=== PATIENT | male | born 1935 | race Caucasian/White ===

== ENCOUNTER → 2016-04-23 | Outpatient (CLI) | payer OTHER, BC ==
[~2016-04-23] MED LIST: ASPI81TA28 PO; ATOR-22 PO; BRIM0.2S OPB; CALCTAB7 PO; CLC100 PO; GABA-112 PO; METO25TA3 PO; PLV75 PO; PRAM0.129 PO
[2016-04-23 10:34] LABS: ALT/SGPT 29 U/L (12-78); BLOOD UREA NITROGEN 12 mg/dl (7-18); BUN/CREATININE RATIO 14.7 (10-20); CALCIUM 9.5 mg/dl (8.5-10.1); CARBON DIOXIDE 27 mmol/L (21-32); CHLORIDE 104 mmol/L (98-107); CHOLESTEROL 105 mg/dl (0-200); CREATININE 0.79 mg/dl (0.60-1.40); GLUCOSE 94 mg/dl (70-99); POTASSIUM 4.6 mmol/L (3.5-5.1); SODIUM 140 mmol/L (136-145); TRIGLYCERIDES 82 mg/dl (0-150); VERY LOW DENSITY LIPOPROT CALC 16 mg/dl
[2016-04-23 10:37] LABS: ALB/GLOB RATIO 1.3 (0.9-2); ALKALINE PHOSPHATASE 90 U/L (45-117); AST/SGOT 28 U/L (15-37); CHOLESTEROL/HDL RATIO 2.7; HDL CHOLESTEROL 39 mg/dl; LDL CHOLESTEROL CALCULATED 50 mg/dl
== END | disposition home or self-care (01) ==
LOC: C.LABFOXMH 10:10
PROVIDERS: ATTEND Internal Medicine
DX: E78.00 Pure hypercholesterolemia, unspecified (principal)

== ENCOUNTER → 2017-01-17 | Outpatient (CLI) | payer OTHER, BC ==
[~2017-01-17] MED LIST changes: -ATOR-22 PO
[2017-01-17 09:07] LABS: BLOOD UREA NITROGEN 15 mg/dl (7-18); BUN/CREATININE RATIO 15.8 (10-20); CALCIUM 9.2 mg/dl (8.5-10.1); CARBON DIOXIDE 29 mmol/L (21-32); CHLORIDE 104 mmol/L (98-107); CREATININE 0.92 mg/dl (0.60-1.40); GLUCOSE 92 mg/dl (70-99); POTASSIUM 4.3 mmol/L (3.5-5.1); SODIUM 137 mmol/L (136-145)
== END | disposition home or self-care (01) ==
LOC: C.LABFOXMH 08:47
PROVIDERS: ATTEND Internal Medicine
DX: E78.5 Hyperlipidemia, unspecified (principal)

== ENCOUNTER 2023-02-22 17:38 | Inpatient (IN) ==
--- NOTE | 2023-02-22 18:11 | Emergency Department Note ---
Impression & Plan Acetabulum fracture, right, Ambulatory dysfunction ED Provider Note HISTORY OF PRESENT ILLNESS: Patient is an 87-year-old male presenting with right hip pain. Patient fell yesterday while trying to ambulate with his walker. He reports that he lost his footing and fell, landing on his right hip and striking his head. Patient was evaluated in the emergency department yesterday and had CT scans of his head and neck performed which were negative. X-rays of the pelvis and right femur were negative. He was discharged back to his facility. Patient states he had continued right hip pain while at his facility and has been unable to ambulate today secondary to the right hip pain. His provider at [facility] ordered a CT of the pelvis which showed an acetabular fracture and he was referred back to the ER. Patient reports that he is normally ambulatory with a cane or a walker, but has been unable to ambulate today secondary to pain in the right hip. Denies any chest pain or shortness of breath. Patient is on Plavix daily. ROS: as above PHYSICAL EXAM: Constitutional: Patient appears in no acute distress. HENT: Head: Normocephalic and atraumatic. Eyes: EOMI, PERRL Mouth/Throat: Mucous membranes moist. Neck: Trachea midline. Neck supple. Cardiovascular: RRR, No murmurs, rubs or gallops. Intact distal pulses. Pulmonary/Chest: No respiratory distress. Breath sounds clear and equal bilaterally. No wheezes or rales. Abdominal: Abdomen soft, no tenderness, rebound or guarding. Musculoskeletal: Tenderness to palpation of the right pelvis. Patient is unable to straight leg raise on the right secondary to pain in the hip Skin: Warm and dry. Large area of ecchymosis to the right posterior upper arm Psychiatric: Appropriate mood and affect for situation. Neurological: Alert and keenly responsive. CN II-XII grossly intact, moving all extremities equally and fully. MDM: - Vitals signs stable. - History obtained via patient. Patient presents with right hip pain. Patient had a fall yesterday and was cleared in the emergency department. However, since being back at his correction he has had continued right hip pain. His correction sent him for further imaging and his CT scan was shown to have an acetabular fracture on the right side. Patient's been nonambulatory today at his correction secondary to significant pain in his right hip. Denies any numbness or tingling down the leg. He is on Plavix. - Chronic conditions affecting care: CVA; HTN; HLD - Differential diagnoses include, but are not limited to: Acetabular fracture; anemia; electrolyte abnormality - Order placed for continuous cardiac monitoring. At this time, monitor showed rate of 63 bpm with normal sinus rhythm, per my interpretation. - External medical records reviewed. ER documentation from the yesterday was reviewed. CT head and cervical spine without contrast were negative for acute pathology - Laboratory workup interpreted by myself showed normal WBC; stable electrolytes - CT hip without contrast from earlier today was reviewed. It showed a nondisplaced comminuted acetabular fracture on the right. - Discussed case with orthopedist electronic components assembler, Dr. Torres, at 18:15. He reports this can be treated nonoperatively and recommended pain control. Recommended weightbearing as tolerated once pain is controlled. No surgical interventions at this time. - Patient given 25 mcg IV fentanyl in ER. On reassessment, he is still complaining of pain. Given patient's continued pain and inability to get up to ambulate like he normally would, will admit for pain control. - Discussion was had with social service manager about patient's case and need for admission for pain management - Hospitalist consulted for admission - Patient admitted to [facility] for further evaluation and management. 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 Stroke 2018 - no deficits - on plavix Hypertension Hyperlipidemia Surgical History History of right cataract surgery History of appendectomy History of hernia repair umbilical x 1, BL inguinal History of tonsillectomy Family History Other No family history of adverse response to anesthesia Social History Smoking Status: Never smoker Second Hand Exposure: No; Do You Dip or Chew Tobacco: No; Hx Alcohol Use: No Hx Substance Use: No Preferred Language: Icelandic Communication Ability: Effective Political Organizer Required: No Beliefs That Will Affect Care: None Current Living Situation: Spouse Feels Safe at Home: Yes Assistive Devices: Cane, Glasses and Walker Allergies Allergies Allergy/AdvReac Type Severity Reaction Status Date / Time No Known Allergies Allergy Verified 02/21/23 20:26 Home Meds Home Medications Medication Instructions Recorded Confirmed atorvastatin 20 mg tablet (Lipitor) 20 mg PO QAM 10/20/19 02/22/23 brimonidine 0.2 %-timolol 0.5 % 1 drp OPB BID 10/20/19 02/22/23 eye drops (Combigan) clopidogrel 75 mg tablet (Plavix) 75 mg PO QAM 10/20/19 02/22/23 metoprolol succinate 25 mg 25 mg PO QAM 10/20/19 02/22/23 tablet,extended release 24 hr (Toprol XL) pramipexole 0.25 mg tablet 0.25 mg PO TID 02/21/23 02/22/23 triamcinolone acetonide 0.1 % 1 applic topical DAILY PRN itchy 02/21/23 02/22/23 topical cream feet Saccharomyces boulardii 250 mg 250 mg PO DAILY 02/22/23 02/22/23 capsule (Florastor) acetaminophen 325 mg tablet 650 mg PO QID 02/22/23 02/22/23 (Tylenol) gabapentin 300 mg capsule 300 mg PO QID 02/22/23 02/22/23 Previous Rx's Medication Instructions Recorded cephalexin 500 mg capsule 500 mg PO BID 10 days #20 caps 02/21/23 Results & Data (ED) Vital Signs Vital Signs - 24 hr 02/22/23 17:45 02/22/23 19:29 Temperature 36.6 C Temperature Source Oral Pulse Rate 67 Pulse Rate [Finger] 63 Pulse Rhythm [Finger] Regular Pulse Strength [Finger] Normal Respiratory Rate 20 17 Respiratory Effort / Characteristics Non-Labored Spontaneous Non-Labored Spontaneous Respiratory Depth Normal Normal Respiratory Pattern Regular Regular Blood Pressure 144/81 H Blood Pressure [Right Arm] 118/87 Blood Pressure Mean 102 Blood Pressure Mean [Right Arm] 97 Blood Pressure Position Semi-fowlers Blood Pressure Position [Right Arm] Semi-fowlers Pulse Oximetry 95 98 Oxygen Delivery Method Room Air Room Air Sepsis Recent Fever Within 48 Hours No Sepsis New/Unexplained Change in Mental Status N/A Sepsis Action Taken by Nursing No Action Required Laboratory Data 02/22/23 17:50 02/22/23 17:50 Lab Results 02/22/23 Range/Units 17:50 WBC 8.84 (4.8-10.8) K/ul RBC 3.96 L (4.70-6.10) M/uL Hgb 13.2 L (14.0-18.0) g/dl Hct 39.3 L (42.0-52.0) % MCV 99.2 (80.0-100.0) fL MCH 33.3 (25.0-34.0) pg MCHC 33.6 (32.0-36.0) g/dL RDW Std Deviation 44.2 (36.4-46.3) fL RDW Coeff of Daniel 11.9 (11.5-14.5) % Plt Count 147 (130-400) K/uL MPV 10.7 (9.4-12.4) fL Immature Gran % (Auto) 0.5 % Neut % (Auto) 69.8 % Lymph % (Auto) 16.2 % Rankin % (Auto) 6.8 % Eos % (Auto) 6.2 % Baso % (Auto) 0.5 % Neut # (Auto) 6.18 (1.40-6.50) K/uL Lymph # (Auto) 1.43 (1.20-3.40) K/uL Rankin # (Auto) 0.60 H (0.11-0.59) K/uL Eos # (Auto) 0.55 H (0.00-0.50) K/uL Baso # (Auto) 0.04 (0.00-0.20) K/uL Immature Gran # (Auto) 0.04 (0.01-0.20) K/uL Sodium 132 L (136-145) mmol/L Potassium 4.3 (3.5-5.1) mmol/L Chloride 101 (98-107) mmol/L Carbon Dioxide 25 (21-32) mmol/L Anion Gap 6 (3-11) BUN 30 H (6-23) mg/dl Creatinine 0.96 (0.6-1.4) mg/dl Est Cr Clr Drug Dosing 61.1 ml/min Est GFR ( Amer) 80.9 ml/min Est GFR (Non-Af Amer) 69.8 ml/min BUN/Creatinine Ratio 31.3 H (10-20) Glucose 107 H (70-99(Fasting)) mg/dl Calcium 9.3 (8.6-10.3) mg/dl Total Bilirubin 1.0 (0.2-1.0) mg/dl AST 20 (13-39) U/L ALT 15 (7-52) U/L Alkaline Phosphatase 70 (34-104) U/L Total Protein 6.5 (6.0-8.3) gm/dl Albumin 4.2 (3.4-5.0) gm/dl Globulin 2.3 L (2.5-4.0) gm/dl Albumin/Globulin Ratio 1.8 (0.9-2) Administered Medications Discontinued Medications Fentanyl Citrate (Fentanyl Citrate Pf 100 Mcg/2 Ml Vial) 25 mcg IV NOW STA Stop: 02/22/23 18:16 Last Admin: 02/22/23 18:22 Dose: 25 mcg Documented By: AN Discharge Plan Visit Data Chief Complaint: Hip Pain Stated Complaint: HIP FX ED Provider: Viviane Rosado Discharge Problem: Acetabulum fracture, right, Ambulatory dysfunction Forms Stand Alone Forms: My [facility] HowAboutWe Prescriptions Prescriptions: No Action atorvastatin [Lipitor] 20 mg Tablet 20 mg PO QAM clopidogrel [Plavix] 75 mg Tablet 75 mg PO QAM metoprolol succinate [Toprol XL] 25 mg Tablet Extended Release 24 Hr 25 mg PO QAM brimonidine-timolol [Combigan] 0.2-0.5 % Drops 1 drp OPB BID triamcinolone acetonide 0.1 % Cream 1 applic TOPICAL DAILY PRN (Reason: itchy feet) pramipexole 0.25 mg tablet 0.25 mg PO TID cephalexin 500 mg capsule 500 mg PO BID 10 Days Qty: 20 0RF gabapentin 300 mg capsule 300 mg PO QID acetaminophen [Tylenol] 325 mg Tablet 650 mg PO QID Saccharomyces boulardii [Florastor] 250 mg Capsule 250 mg PO DAILY Rx Instructions: take for 2 weeks..ordered 02/21/23 Referrals Referrals: Trevor Pastor MD [Physician] -
[2023-02-22] MEDS ORDERED: fentaNYL citrate PF 100 MCG/2 ML VIAL IV STA (18:15)
[2023-02-22 18:44] LABS: Basophils # (auto) 0.04 K/uL (0.00-0.20); Basophils % (auto) 0.5 %; Eosinophils # (auto) 0.55 K/uL (0.00-0.50); Eosinophils % (auto) 6.2 %; Hematocrit (blood only) 39.3 % (42.0-52.0); Hemoglobin 13.2 g/dl (14.0-18.0); Immature Granulocytes # (auto) 0.04 K/uL (0.01-0.20); Immature Granulocytes % (auto) 0.5 %; Lymphocytes # (auto) 1.43 K/uL (1.20-3.40); Lymphocytes % (auto) 16.2 %; Mean Corpuscular Hemoglobin 33.3 pg (25.0-34.0); Mean Corpuscular Hgb Conc 33.6 g/dL (32.0-36.0); Mean Corpuscular Volume 99.2 fL (80.0-100.0); Mean Platelet Volume 10.7 fL (9.4-12.4); Monocytes % (auto) 6.8 %; Neutrophils # (auto) 6.18 K/uL (1.40-6.50); Neutrophils % (auto) 69.8 %; Platelet Count 147 K/uL (130-400); RDW Coefficient of Variation 11.9 % (11.5-14.5); RDW Standard Deviation 44.2 fL (36.4-46.3); Red Blood Count 3.96 M/uL (4.70-6.10); White Blood Count 8.84 K/ul (4.8-10.8)
[2023-02-22 18:50] LABS: Albumin Globulin Ratio 1.8 (0.9-2); Albumin Level 4.2 gm/dl (3.4-5.0); BUN Creatinine Ratio 31.3 (10-20); Calcium 9.3 mg/dl (8.6-10.3); Creatinine Clr Calc Pharmacy 61.1 ml/min; Est GFR (African American) 80.9 ml/min; Est GFR (Non-African American) 69.8 ml/min; Globulin 2.3 gm/dl (2.5-4.0); Potassium 4.3 mmol/L (3.5-5.1); Total Protein 6.5 gm/dl (6.0-8.3)
--- NOTE | 2023-02-22 21:01 | History & Physical Report ---
Date of Service February 22, 2023 Assessment & Plan (1) Acetabulum fracture, right: Plan: Patient fell on 02/21 ED visit on 02/[address], cervical spine CT, pelvic x-ray Patient returned to the ED on 02/22 with continued right hip pain; rated 5/[address] on 02/22 showed nondisplaced comminuted fractures of the right acetabulum We are admitting for pain control with the plan to send the patient back to [facility] on 02/23 if improvement Acetaminophen 650 mg p.o. q6h as needed for pain 1-3 Dilaudid 0.25 mg IV q4h as needed for pain 4-6; renal function okay Dilaudid 0.50 mg IV q4h as needed for pain 7-10; renal function okay A.m. CBC, BMP (2) Ambulatory dysfunction: Plan: Patient ambulates with a walker at baseline PT/OT consulted (3) Fall: Plan: On 02/21 Patient was not using his walker/cane at the time Fell onto the right side injuring his RUE and RLE He denies pain in the upper extremity, but endorses right hip pain Low suspicion that UTI is the cause of his fall; hold Keflex Fall precautions (4) Anemia: Plan: Mild anemia at 13.2 and HCT at 39.3 This represents a one-point decrease in hemoglobin from 02/21 to 02/22 Continue to monitor via daily CBC Hold chemical DVT PPx for now (5) Neuropathy: Plan: Continue gabapentin 300 mg p.o. 4 times daily Plan Disposition: Obs -admit to [facility] DNR/DNI Regular diet VTE PPx: SCDs (hold chemical DVT PPx) History of Present Illness Chief Complaint: Hip pain Primary Care Provider: [facility] Suadrshan is an 87-year-old male with PMH of UTI, fall, and ambulatory dysfunction. He presented via EMS from [facility] for right hip pain following a ground-level fall on 02/21 while ambulating without his walker. He normally uses a cane and walker. He reports that his heels "gave out on him" due to the neuropathy in his feet. No dizziness or lightheadedness before fall. No LOC. Struck head. He sustained a head lac, and was evaluated in the ED with negative head CT, neck CT, and abdomen/pelvis x-ray. He returned to the ED on 02/22 with continued right hip pain. Hip CT showed R acetabullar fx. He rates his right hip pain 5/10; describes it as a burning pain. No radiation down legs or to back. Patient did not take any pain medicine at home. Patient manages his own medications. He did not take his morning medication. Patient reports he does not take tylenol QID (as listed on his med rec). He was placed on Keflex 500 mg twice daily x10 days following his last ED visit for UTI coverage; however, given patient is asymptomatic for urinary s/s at this time, UA on 02/21 likely represented colonization; we will DC the Keflex. Vital stable at time of admission. ED course: Fentanyl citrate 25 mcg IV ROS: Patient endorses right hip pain. Patient denies fever, chills, nightsweats, cough, difficulty swallowing, CP, pleuritic CP, SOB, pain in the upper right extremity, abdominal pain, N/V/D, urinary retention, burning with urination, blood in stool or urine, saddle anesthesia, or numbness/tingling going down the legs. PMHx of TIA 2y ago. No PMHx of [place], cancer, DVT/PE, or diabetes. Allergies Allergy/AdvReac Type Severity Reaction Status Date / Time No Known Allergies Allergy Verified 02/21/23 20:26 Home Medications Medication Instructions Recorded Confirmed Type atorvastatin 20 mg tablet (Lipitor) 20 mg PO QAM 10/20/19 02/22/23 History brimonidine 0.2 %-timolol 0.5 % 1 drp OPB BID 10/20/19 02/22/23 History eye drops (Combigan) clopidogrel 75 mg tablet (Plavix) 75 mg PO QAM 10/20/19 02/22/23 History metoprolol succinate 25 mg 25 mg PO QAM 10/20/19 02/22/23 History tablet,extended release 24 hr (Toprol XL) cephalexin 500 mg capsule 500 mg PO BID 10 days #20 caps 02/21/23 02/22/23 Rx pramipexole 0.25 mg tablet 0.25 mg PO TID 02/21/23 02/22/23 History triamcinolone acetonide 0.1 % 1 applic topical DAILY PRN itchy 02/21/23 02/22/23 History topical cream feet Saccharomyces boulardii 250 mg 250 mg PO DAILY 02/22/23 02/22/23 History capsule (Florastor) gabapentin 300 mg capsule 300 mg PO QID 02/22/23 02/22/23 History Past Med/Surg History Medical History (Updated 02/22/23 @ 22:01 by Nigel Yanez PA-C) Restless leg syndrome Degenerative disc disease Glaucoma 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 Stroke 2018 - no deficits - on plavix Hypertension Hyperlipidemia Surgical History History of right cataract surgery History of appendectomy History of hernia repair umbilical x 1, BL inguinal History of tonsillectomy Family History Other No family history of adverse response to anesthesia Social History Smoking Status: Never smoker Second Hand Exposure: No; Do You Dip or Chew Tobacco: No; Hx Alcohol Use: No Hx Substance Use: No Preferred Language: Albanian Communication Ability: Effective Drophammer Operator Required: No Beliefs That Will Affect Care: None Current Living Situation: Spouse Current Living Situation Comment: @ [facility] Other Information That Helps Us Care for You: Yes Feels Safe at Home: Yes Assistive Devices: Cane, Glasses and Walker Review of Systems Review of Systems: See HPI above Physical Exam Physical Exam: General: no acute distress; non-toxic appearing; well-nourished; cooperative; pleasant affect HEENT: Right posterior skull laceration 1 cm vertical with dried blood; no scleral icterus; PERRLA w/ EOMs intact; dry mucus membrane; vision and hearing grossly intact Neck: supple; no lymphadenopathy; trachea midline Skin: warm, dry without signs of tenting; no cyanosis; no rashes, or erythema noted CV: chest wall NTP; RRR; S1/S2 normal; no murmurs/rubs/gallops; pulses intact and symmetric at radial, DP, and PT Lungs: no acute respiratory distress; symmetrical chest wall expansion; clear breath sounds across all lung velazquez w/o adventitious sounds; no wheezing ABD: Soft, NTP; BS present; no rebound/guarding; no ascites; no distention; negative CVA tenderness RUE: Dark purple bruising on the lateral right upper arm; NTP RLE: Right hip tender to palpation; dark purple bruising on the right posterior hip MSK: no tics or fasciculations; +2 pitting edema in the LEs B/L Neuro: A&Ox3; patient demonstrates capacity; normal mood and affect; fluent speech; diminished sensation in the LEs B/L Results & Data Results & Data Vital Signs (Past 12 Hours) Vital Signs Temp Pulse Pulse Resp BP BP Pulse Ox 02/22/23 19:29 63 17 118/87 98 02/22/23 17:45 36.6 C 67 20 144/81 H 95 O2 Del Method 02/22/23 19:29 Room Air 02/22/23 17:45 Room Air Laboratory Results Abnormal lab results 02/22/23 Range/Units 17:50 RBC 3.96 L (4.70-6.10) M/uL Hgb 13.2 L (14.0-18.0) g/dl Hct 39.3 L (42.0-52.0) % [place] # (Auto) 0.60 H (0.11-0.59) K/uL Eos # (Auto) 0.55 H (0.00-0.50) K/uL Sodium 132 L (136-145) mmol/L BUN 30 H (6-23) mg/dl BUN/Creatinine Ratio 31.3 H (10-20) Glucose 107 H (70-99(Fasting)) mg/dl Globulin 2.3 L (2.5-4.0) gm/dl Diagnostic Findings CT hip RT wo con CLINICAL HISTORY: FALL,R HIP/BUTTOCK PAIN,IMPAIRED MOBILITY TECHNIQUE: Multidetector row helical CT of the right hip was performed without intravenous contrast. Coronal and sagittal reformations were obtained. Automated dose lowering techniques and/or adjustment according to patient size were utilized for this examination. CT DOSE: 727.19 mGy.cm Comparison: Comparison is made to pelvis radiograph 02/21/2023 FINDINGS: Nondisplaced comminuted fractures of the acetabulum are seen. The femur is intact. Soft tissue swelling is noted in the lateral aspect of the hip. IMPRESSION: Nondisplaced comminuted fractures of the right acetabulum are seen. Soft tissue swelling is noted in the lateral soft tissues. ACT 112: Negative or not required by law. Code Status & VTE Plan Code Status DNR/DNI VTE Prophylaxis Plan VTE Prophylaxis will be ordered: Yes Supervising Physician Co-Signing Physician Notes Attending addendum: I have physically seen this patient, have supervised the SOHEILA's activities, and agree with the H&P unless as otherwise noted. Assessment and Plan: Closed right acetabular fracture/ambulatory dysfunction/status post recent fall- Status post fall in 02/21 Seen in the ED 02/[address] head, cervical spine and pelvic x-ray Seen again on 02/22, after having had a CT of the hip in the outpatient setting which showed a nondisplaced comminuted fracture of the right acetabulum Acetaminophen 650 mg by mouth every 6 hours as needed for mild pain or fever Dilaudid 0.25 mg IV every 4 hours as needed for moderate pain Follow 0.5 mg IV every 4 hours as needed for severe pain Consult PT/OT Peripheral neuropathy- Continue gabapentin 300 mg p.o. 4 times daily Unclear contribution to recent fall, but will need to be followed Plan to return to [facility] Care Time/CCT Total # of Minutes Spent Total Time Spent with Patient: Total time spent is greater than 50% in coordination of care (as documented) at patient's floor/unit and/or counseling patient: Coding [place] [address] INT INP/OBS CARE 2MIN Patient Type Established Medical Decision Making Low Complexity Diagnoses Acetabulum fracture, right S32.401A Ambulatory dysfunction R26.2 Fall W19.XXXA Encounter type: initial encounter Anemia D64.9 Neuropathy G62.9 (3) Fall Encounter type: initial encounter Qualified Code(s): W19.XXXA - Unspecified fall, initial encounter
[2023-02-23] MEDS ORDERED: HYDROmorphone INJ 0.5 MG/0.5 ML SYR IV PRN (01:35)
[2023-02-23] MEDS ORDERED: TRIAMCINOLONE ACET 0.1% CR 15 GM TUBE TOP PRN (01:35)
[2023-02-23] MEDS ORDERED: ACETAMINOPHEN 325 MG TAB PO PRN (01:35)
[2023-02-23] MEDS ORDERED: HYDROmorphone INJ 1 MG/ML SYRINGE IV PRN (01:35)
[2023-02-23 04:01] LABS: Basophils # (auto) 0.04 K/uL (0.00-0.20); Basophils % (auto) 0.6 %; Eosinophils # (auto) 0.51 K/uL (0.00-0.50); Eosinophils % (auto) 7.2 %; Hematocrit (blood only) 34.8 % (42.0-52.0); Hemoglobin 12.1 g/dl (14.0-18.0); Immature Granulocytes # (auto) 0.03 K/uL (0.01-0.20); Immature Granulocytes % (auto) 0.4 %; Lymphocytes # (auto) 1.12 K/uL (1.20-3.40); Lymphocytes % (auto) 15.8 %; Mean Corpuscular Hemoglobin 33.8 pg (25.0-34.0); Mean Corpuscular Hgb Conc 34.8 g/dL (32.0-36.0); Mean Corpuscular Volume 97.2 fL (80.0-100.0); Mean Platelet Volume 10.5 fL (9.4-12.4); Monocytes # (auto) 0.58 K/uL (0.11-0.59); Monocytes % (auto) 8.2 %; Neutrophils # (auto) 4.81 K/uL (1.40-6.50); Neutrophils % (auto) 67.8 %; Platelet Count 115 K/uL (130-400); RDW Coefficient of Variation 11.9 % (11.5-14.5); RDW Standard Deviation 42.4 fL (36.4-46.3); Red Blood Count 3.58 M/uL (4.70-6.10); White Blood Count 7.09 K/ul (4.8-10.8)
[2023-02-23 04:13] LABS: BUN Creatinine Ratio 31.7 (10-20); Calcium 8.8 mg/dl (8.6-10.3); Est GFR (African American) 90.9 ml/min; Est GFR (Non-African American) 78.4 ml/min
[2023-02-23] MEDS: SACCHAROMYCES BOULARDII 250 MG CAP PO SCH (09:17)
[2023-02-23] MEDS: PRAMIPEXOLE DIHYDROCHLO 0.25 MG TAB PO SCH ×3 (09:18→20:48)
[2023-02-23] MEDS: GABAPENTIN 300 MG CAP PO SCH ×4 (09:18→20:48)
[2023-02-23] MEDS: CLOPIDOGREL BISULFATE 75 MG TAB PO SCH (09:18)
[2023-02-23] MEDS: METOPROLOL SUCC 25MG EXT REL TAB PO SCH (09:18)
[2023-02-23] MEDS: ATORVASTATIN 20 MG TAB PO SCH (09:18)
[2023-02-23] MEDS ORDERED: traMADol HCL 50 MG TABLET PO PRN (11:39)
[2023-02-23] MEDS: ACETAMINOPHEN 500 MG TAB PO SCH ×2 (11:49→20:47)
--- NOTE | 2023-02-23 20:05 | Hospitalist Progress Note ---
Date of Service February 23, 2023 Assessment & Plan (1) Acetabulum fracture, right: Plan: Patient fell on 02/21 ED visit on 02/[address], cervical spine CT, pelvic x-ray Patient returned to the ED on 02/22 with continued right hip pain; rated 5/[address] on 02/22 showed nondisplaced comminuted fractures of the right acetabulum Since the patient have significant pain, started on [id number] Tylenol, stop IV narcotics for breakthrough pain, started on p.o. medicine for breakthrough pain, continue PT OT (2) Ambulatory dysfunction: Plan: Patient ambulates with a walker at baseline PT/OT consulted (3) Fall: Plan: On 02/21 Patient was not using his walker/cane at the time Fell onto the right side injuring his RUE and RLE He denies pain in the upper extremity, but endorses right hip pain Low suspicion that UTI is the cause of his fall; hold Keflex Fall precautions (4) Anemia: Plan: Mild anemia at 13.2 and HCT at 39.3 This represents a one-point decrease in hemoglobin from 02/21 to 02/22 Continue to monitor via daily CBC Hold chemical DVT PPx for now (5) Neuropathy: Plan: Continue gabapentin 300 mg p.o. 4 times daily Plan Disposition: Obs -admit to [facility] DNR/DNI Regular diet VTE PPx: SCDs (hold chemical DVT PPx) Admission and Anticipated Discharge Date Admission Date: February 22, 2023 Subjective Mechanical fall, pain management, PT OT consult, possible placement the patient still complained of significant pain with ambulation Physical Exam Physical Exam: General: no acute distress; non-toxic appearing; well-nourished; cooperative; pleasant affect HEENT: Right posterior skull laceration 1 cm vertical with dried blood; no scleral icterus; PERRLA w/ EOMs intact; dry mucus membrane; vision and hearing grossly intact Neck: supple; no lymphadenopathy; trachea midline Skin: warm, dry without signs of tenting; no cyanosis; no rashes, or erythema noted CV: chest wall NTP; RRR; S1/S2 normal; no murmurs/rubs/gallops; pulses intact and symmetric at radial, DP, and PT Lungs: no acute respiratory distress; symmetrical chest wall expansion; clear breath sounds across all lung velazquez w/o adventitious sounds; no wheezing ABD: Soft, NTP; BS present; no rebound/guarding; no ascites; no distention; negative CVA tenderness RUE: Dark purple bruising on the lateral right upper arm; NTP RLE: Right hip tender to palpation; dark purple bruising on the right posterior hip MSK: no tics or fasciculations; +2 pitting edema in the LEs B/L Neuro: A&Ox3; patient demonstrates capacity; normal mood and affect; fluent speech; diminished sensation in the LEs B/L Results & Data Results & Data Vital Signs (Past 12 Hours) Vital Signs Temp Pulse Resp BP Pulse Ox O2 Del Method 02/23/23 19:58 36.4 C L 64 16 127/68 95 Room Air 02/23/23 14:49 37.5 C 65 16 123/66 96 Room Air PG Care Time/CCT Total # of Minutes Spent Total Time Spent with Patient: Total time spent is greater than 50% in coordination of care (as documented) at patient's floor/unit and/or counseling patient: Coding Level of Care Code 72507 SUB INP/OBS CARE 235MIN Diagnoses Acetabulum fracture, right S32.401A Ambulatory dysfunction R26.2 Fall W19.XXXA Encounter type: initial encounter Anemia D64.9 Neuropathy G62.9 (3) Fall Encounter type: initial encounter Qualified Code(s): W19.XXXA - Unspecified fall, initial encounter
[2023-02-23] MEDS: traMADol HCL 50 MG TABLET PO PRN (20:50)
[2023-02-24] MEDS: ACETAMINOPHEN 500 MG TAB PO SCH ×3 (03:38→20:18)
[2023-02-24] MEDS: SACCHAROMYCES BOULARDII 250 MG CAP PO SCH (08:15)
[2023-02-24] MEDS: PRAMIPEXOLE DIHYDROCHLO 0.25 MG TAB PO SCH ×3 (08:15→20:19)
[2023-02-24] MEDS: ATORVASTATIN 20 MG TAB PO SCH (08:15)
[2023-02-24] MEDS: GABAPENTIN 300 MG CAP PO SCH ×4 (08:16→20:19)
[2023-02-24] MEDS: CLOPIDOGREL BISULFATE 75 MG TAB PO SCH (08:16)
[2023-02-24] MEDS: METOPROLOL SUCC 25MG EXT REL TAB PO SCH (08:16)
--- NOTE | 2023-02-24 17:05 | Hospitalist Progress Note ---
Date of Service February 24, 2023 Assessment & Plan (1) Acetabulum fracture, right: Plan: Patient fell on 02/21 ED visit on 02/[address], cervical spine CT, pelvic x-ray Patient returned to the ED on 02/22 with continued right hip pain; rated 5/[address] on 02/22 showed nondisplaced comminuted fractures of the right acetabulum Since the patient have significant pain, started on [id number] Tylenol, stop IV narcotics for breakthrough pain, started on p.o. medicine for breakthrough pain, continue PT OT Disposition : the patient is ready to be discharged , pending placement (2) Ambulatory dysfunction: Plan: Patient ambulates with a walker at baseline PT/OT consulted (3) Fall: Plan: On 02/21 Patient was not using his walker/cane at the time Fell onto the right side injuring his RUE and RLE He denies pain in the upper extremity, but endorses right hip pain Low suspicion that UTI is the cause of his fall; hold Keflex Fall precautions (4) Anemia: Plan: Mild anemia at 13.2 and HCT at 39.3 This represents a one-point decrease in hemoglobin from 02/21 to 02/22 Continue to monitor via daily CBC Hold chemical DVT PPx for now (5) Neuropathy: Plan: Continue gabapentin 300 mg p.o. 4 times daily Plan Disposition: Obs -admit to [facility] DNR/DNI Regular diet VTE PPx: SCDs (hold chemical DVT PPx) Admission and Anticipated Discharge Date Admission Date: February 24, 2023 Subjective Mechanical fall, pain management, PT OT consult, possible placement the patient still complained of significant pain with ambulation Review of Systems Review of Systems: See HPI above Physical Exam Physical Exam: General: no acute distress; non-toxic appearing; well-nourished; cooperative; pleasant affect HEENT: Right posterior skull laceration 1 cm vertical with dried blood; no scleral icterus; PERRLA w/ EOMs intact; dry mucus membrane; vision and hearing grossly intact Neck: supple; no lymphadenopathy; trachea midline Skin: warm, dry without signs of tenting; no cyanosis; no rashes, or erythema noted CV: chest wall NTP; RRR; S1/S2 normal; no murmurs/rubs/gallops; pulses intact and symmetric at radial, DP, and PT Lungs: no acute respiratory distress; symmetrical chest wall expansion; clear breath sounds across all lung velazquez w/o adventitious sounds; no wheezing ABD: Soft, NTP; BS present; no rebound/guarding; no ascites; no distention; negative CVA tenderness RUE: Dark purple bruising on the lateral right upper arm; NTP RLE: Right hip tender to palpation; dark purple bruising on the right posterior hip MSK: no tics or fasciculations; +2 pitting edema in the LEs B/L Neuro: A&Ox3; patient demonstrates capacity; normal mood and affect; fluent speech; diminished sensation in the LEs B/L Results & Data Results & Data Vital Signs (Past 12 Hours) Vital Signs Temp Pulse Resp BP Pulse Ox O2 Del Method 02/24/23 15:05 36.3 C L 58 L 16 144/73 H 96 Room Air 02/24/23 07:13 36.5 C 55 L 16 143/73 H 94 Room Air PG Care Time/CCT Total # of Minutes Spent Total Time Spent with Patient: Total time spent is greater than 50% in coordination of care (as documented) at patient's floor/unit and/or counseling patient: Coding Level of Care Code 88179 SUB INP/OBS CARE 2/35MIN Diagnoses Acetabulum fracture, right S32.401A Ambulatory dysfunction R26.2 Fall W19.XXXA Encounter type: initial encounter Anemia D64.9 Neuropathy G62.9 (3) Fall Encounter type: initial encounter Qualified Code(s): W19.XXXA - Unspecified fall, initial encounter
[2023-02-24] MEDS: POLYETHYLENE (MIRALAX) 17 GM PACK PO PRN (22:56)
[2023-02-25] MEDS: ACETAMINOPHEN 500 MG TAB PO SCH ×3 (03:57→20:30)
[2023-02-25] MEDS: SACCHAROMYCES BOULARDII 250 MG CAP PO SCH (07:51)
[2023-02-25] MEDS: PRAMIPEXOLE DIHYDROCHLO 0.25 MG TAB PO SCH ×3 (07:51→20:32)
[2023-02-25] MEDS: ATORVASTATIN 20 MG TAB PO SCH (07:51)
[2023-02-25] MEDS: CLOPIDOGREL BISULFATE 75 MG TAB PO SCH (07:51)
[2023-02-25] MEDS: METOPROLOL SUCC 25MG EXT REL TAB PO SCH (07:51)
[2023-02-25] MEDS: GABAPENTIN 300 MG CAP PO SCH ×4 (07:52→20:31)
[2023-02-25] MEDS: traMADol HCL 50 MG TABLET PO PRN ×2 (07:53→17:36)
[2023-02-25] MEDS: POLYETHYLENE (MIRALAX) 17 GM PACK PO PRN (07:53)
--- NOTE | 2023-02-25 13:59 | Hospitalist Progress Note ---
Date of Service February 25, 2023 Assessment & Plan (1) Acetabulum fracture, right: Plan: Patient fell on 02/21 ED visit on 02/[address], cervical spine CT, pelvic x-ray Patient returned to the ED on 02/22 with continued right hip pain; Hip CT on 02/22 showed nondisplaced comminuted fractures of the right acetabulum Here for pain control PT determined he requires rehab Placement is pending (2) Ambulatory dysfunction: Plan: Patient ambulates with a walker at baseline PT/OT consulted (3) Fall: Plan: On 02/21 Patient was not using his walker/cane at the time Fell onto the right side injuring his RUE and RLE He denies pain in the upper extremity, but endorses right hip pain Low suspicion that UTI is the cause of his fall; hold Keflex Fall precautions (4) Anemia: Plan: Mild anemia at 13.2 and HCT at 39.3 This represents a one-point decrease in hemoglobin from 02/21 to 02/22 Continue to monitor via daily CBC Hold chemical DVT PPx for now (5) Neuropathy: Plan: Continue gabapentin 300 mg p.o. 4 times daily Plan Disposition: Obs -admit to [facility] DNR/DNI Regular diet VTE PPx: SCDs (hold chemical DVT PPx) Admission and Anticipated Discharge Date Admission Date: February 24, 2023 Subjective patient seen and examined, still has significant pain , especially on ambulation Review of Systems Review of Systems: All systems reviewed are negative, apart from the ones contained in the history. Physical Exam Physical Exam: The patient is awake, alert and oriented 3, well developed and well nourished, normocephalic and atraumatic, lying in bed and in no acute distress. HEENT--PERRL, EOMI, mucous membranes and oropharynx mildly dry Neck--supple. No JVD. No bruits. Thyroid normal, trachea midline, no adenopathy. Heart--normal S1 and S2. No murmurs, rubs or gallops. Lungs--clear bilaterally, no respiratory distress, no accessory muscle use. Abdomen--normal bowel sounds and soft. Mild epigastric and left sided abdominal pain Extremities--no cyanosis or clubbing. No edema. Dermatologic--normal skin turgor, normal color, no abnormal lymph nodes, no rash. Neurologic--cranial nerves II through XII grossly intact. Rheumatologic--normal range of motion. Psychiatric--normal affect. Results & Data Results & Data Vital Signs (Past 12 Hours) Vital Signs Temp Pulse Resp BP Pulse Ox O2 Del Method 02/25/23 07:14 97.9 F 60 16 131/74 94 Room Air PG Care Time/CCT Total # of Minutes Spent Total Time Spent with Patient: Total time spent is greater than 50% in coordination of care (as documented) at patient's floor/unit and/or counseling patient: Coding Level of Care Code 41993 SUB INP/OBS CARE 2/35MIN Diagnoses Acetabulum fracture, right S32.401A Ambulatory dysfunction R26.2 Fall W19.XXXA Encounter type: initial encounter Anemia D64.9 Neuropathy G62.9 Time Spent (min) 35 (3) Fall Encounter type: initial encounter Qualified Code(s): W19.XXXA - Unspecified fall, initial encounter
[2023-02-25 14:19] VITALS: TEMP 97.7
[2023-02-26] MEDS: ACETAMINOPHEN 500 MG TAB PO SCH ×2 (04:43→11:42)
[2023-02-26 07:37] VITALS: BP 131/68; RESP 16
[2023-02-26] MEDS: SACCHAROMYCES BOULARDII 250 MG CAP PO SCH (08:34)
[2023-02-26] MEDS: ATORVASTATIN 20 MG TAB PO SCH (08:34)
[2023-02-26] MEDS: CLOPIDOGREL BISULFATE 75 MG TAB PO SCH (08:34)
[2023-02-26] MEDS: GABAPENTIN 300 MG CAP PO SCH ×2 (08:34→13:03)
[2023-02-26] MEDS: PRAMIPEXOLE DIHYDROCHLO 0.25 MG TAB PO SCH ×2 (08:35→13:03)
[2023-02-26 08:36] VITALS: PULSE 66; O2SAT 96
[2023-02-26] MEDS: METOPROLOL SUCC 25MG EXT REL TAB PO SCH (08:36)
[2023-02-26] MEDS: POLYETHYLENE (MIRALAX) 17 GM PACK PO PRN (08:41)
--- NOTE | 2023-02-26 14:03 | Discharge Summary ---
Date of Service February 26, 2023 Admission HPI Per Admitting Provider Sudarshan is an 87-year-old male with PMH of UTI, fall, and ambulatory dysfunction. He presented via EMS from [facility] for right hip pain following a ground-level fall on 02/21 while ambulating without his walker. He normally uses a cane and walker. He reports that his heels "gave out on him" due to the neuropathy in his feet. No dizziness or lightheadedness before fall. No LOC. Struck head. He sustained a head lac, and was evaluated in the ED with negative head CT, neck CT, and abdomen/pelvis x-ray. He returned to the ED on 02/22 with continued right hip pain. Hip CT showed R acetabullar fx. He rates his right hip pain 08/22; describes it as a burning pain. No radiation down legs or to back. Patient did not take any pain medicine at home. Patient manages his own medications. He did not take his morning medication. Patient reports he does not take tylenol QID (as listed on his med rec). He was placed on Keflex 500 mg twice daily x10 days following his last ED visit for UTI coverage; however, given patient is asymptomatic for urinary s/s at this time, UA on 02/21 likely represented colonization; we will DC the Keflex. Vital stable at time of admission. ED course: Fentanyl citrate 25 mcg IV ROS: Patient endorses right hip pain. Patient denies fever, chills, nightsweats, cough, difficulty swallowing, CP, pleuritic CP, SOB, pain in the upper right extremity, abdominal pain, N/V/D, urinary retention, burning with urination, blood in stool or urine, saddle anesthesia, or numbness/tingling going down the legs. PMHx of TIA 2y ago. No PMHx of IA, cancer, DVT/PE, or diabetes. Principal Diagnosis acetabulum fracture Discharge Exam The patient is awake, alert and oriented 3, well developed and well nourished, normocephalic and atraumatic, lying in bed and in no acute distress. HEENT--PERRL, EOMI, mucous membranes and oropharynx mildly dry Neck--supple. No JVD. No bruits. Thyroid normal, trachea midline, no adenopathy. Heart--normal S1 and S2. No murmurs, rubs or gallops. Lungs--clear bilaterally, no respiratory distress, no accessory muscle use. Abdomen--normal bowel sounds and soft. Mild epigastric and left sided abdominal pain Extremities--no cyanosis or clubbing. No edema. Dermatologic--normal skin turgor, normal color, no abnormal lymph nodes, no rash. Neurologic--cranial nerves II through XII grossly intact. Rheumatologic--normal range of motion. Psychiatric--normal affect. Discharge Data Allergies Allergy/AdvReac Type Severity Reaction Status Date / Time No Known Allergies Allergy Verified 02/21/23 20:26 Consultations 02/22/23 20:15 ED Decision to Admit Stat Hospital Course (1) Acetabulum fracture, right: Patient fell on 02/21 ED visit on 02/[address], cervical spine CT, pelvic x-ray Patient returned to the ED on 02/22 with continued right hip pain; Hip CT on 02/22 showed nondisplaced comminuted fractures of the right acetabulum Here for pain control PT determined he requires rehab d/c to rehab (2) Ambulatory dysfunction: Patient ambulates with a walker at baseline PT/OT consulted (3) Fall: On 02/21 Patient was not using his walker/cane at the time Fell onto the right side injuring his RUE and RLE He denies pain in the upper extremity, but endorses right hip pain Low suspicion that UTI is the cause of his fall; hold Keflex Fall precautions (4) Anemia: Mild anemia at 13.2 and HCT at 39.3 This represents a one-point decrease in hemoglobin from 02/21 to 02/22 Continue to monitor via daily CBC Hold chemical DVT PPx for now (5) Neuropathy: Continue gabapentin 300 mg p.o. 4 times daily Plan Disposition: Obs -admit to [facility] DNR/DNI Regular diet VTE PPx: SCDs (hold chemical DVT PPx) Total Time Total Time Spent Total Time Spent (In Minutes): 35 Discharge Plan Discharge Items Patient Disposition: Transfer Inpatient Rehab Fac Reason For Visit: RIGHT HIP PAIN Discharge Diagnosis: right acetabulum fracture Activity: Resume your previous activity Non-emergency contact: Primary Care Provider Call non-emergency contact if: you have any medication questions Follow-up/Referrals: Bright Cage [Primary Care Provider] - Diet: Regular Addtl Attending Provider Instructions: please make appointment to follow up with your PCP Pending Studies at Discharge: No Stand-Alone Forms: My [facility] Skilled Items Patient informed of condition?: Yes DNR: Yes Discharge Level of Care: Acute rehab Communicable Disease: No Discharge Prognosis: Stable Lines: None Urinary Catheter: No Medications and DC Order Prescriptions: Continued atorvastatin [Lipitor] 20 mg Tablet 20 mg PO QAM clopidogrel [Plavix] 75 mg Tablet 75 mg PO QAM metoprolol succinate [Toprol XL] 25 mg Tablet Extended Release 24 Hr 25 mg PO QAM brimonidine-timolol [Combigan] 0.2-0.5 % Drops 1 drp OPB BID triamcinolone acetonide 0.1 % Cream 1 applic TOPICAL DAILY PRN (Reason: itchy feet) pramipexole 0.25 mg tablet 0.25 mg PO TID gabapentin 300 mg capsule 300 mg PO QID Saccharomyces boulardii [Florastor] 250 mg Capsule 250 mg PO DAILY Rx Instructions: take for 2 weeks..ordered 02/21/23 Discontinued cephalexin 500 mg capsule 500 mg PO BID 10 Days Qty: 20 0RF Discharge Orders: Discharge Order (Routine); Ordered 02/26/23 Ordered By: Vickie Bernard/Other Patient Handouts: Falls Prevent Adjust Living Space Admission Data Admit Date/Time: 02/24/23 13:14 Attending Provider: Vickie Santos Admit Provider: Michael Carvalho Primary Care Provider: Bright Cage Other Providers: Michael Carvalho Other Interventions: Discharge Summary Assessment (RN) Last Done: 02/26/23 11:47 Coding Level of Care Code 05273 INP/OBS DISCH >30 MIN Diagnoses Acetabulum fracture, right S32.401A Ambulatory dysfunction R26.2 Fall W19.XXXA Encounter type: initial encounter Anemia D64.9 Neuropathy G62.9 Time Spent (min) 35
== END 2023-02-26 13:39 | DRG 536 ==
LOC: ED 17:38 → EDINP 17:38 → SUATTDRO 21:50 → 3E 02-23 01:35 → SUATTDRO 02-24 13:14
DX: Z66 Do not resuscitate; D64.9 Anemia, unspecified; S32.401A Unspecified fracture of right acetabulum, initial encounter for closed fracture; H40.9 Unspecified glaucoma; Z11.52 Encounter for screening for COVID-19; Y92.099 Unspecified place in other non-institutional residence as the place of occurrence of the external cause; E78.5 Hyperlipidemia, unspecified; Z86.73 Personal history of transient ischemic attack (TIA), and cerebral infarction without residual deficits; S40.021A Contusion of right upper arm, initial encounter; G62.9 Polyneuropathy, unspecified; Z79.899 Other long term (current) drug therapy; Z79.02 Long term (current) use of antithrombotics/antiplatelets; W18.30XA Fall on same level, unspecified, initial encounter; I10 Essential (primary) hypertension; G25.81 Restless legs syndrome